=== PATIENT | female | born 1995 | race Caucasian/White ===

== ENCOUNTER 2022-11-17 08:58 | Emergency (ER) | payer SELFPAY ==
[2022-11-17 09:07] VITALS: BP 104/80; BP 94/60; PULSE 66; PULSE 80; RESP 16; TEMP 36.7; O2SAT 97; O2SAT 99; BMI 21.7
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
[2022-11-17] MEDS: Cyclobenzaprine HCl 5 MG TABLET PO (09:42)
[2022-11-17] MEDS: Ibuprofen 600 MG TABLET PO (09:47)
== END 2022-11-17 10:27 | disposition home or self-care (01) ==
PROVIDERS: Emergency Provider Emergency Medicine; PCP Nurse Practitioner
DX: S39.012A Strain of muscle, fascia and tendon of lower back, initial encounter (principal); V43.52XA Car driver injured in collision with other type car in traffic accident, initial encounter; Y93.9 Activity, unspecified; Y92.410 Unspecified street and highway as the place of occurrence of the external cause; Y99.9 Unspecified external cause status; Z79.899 Other long term (current) drug therapy
CPT/HCPCS: 99283; 99284